=== PATIENT | male | born 1980 | race Caucasian/White ===

== ENCOUNTER → 2023-02-12 | Outpatient (CLI) | payer OTHER ==
--- NOTE | 2023-02-12 15:48 | XR ---
EXAMINATION TYPE: XR hand complete RT DATE OF EXAM: 02/12/2023 COMPARISON: NONE HISTORY: Pain TECHNIQUE: Three views are submitted. FINDINGS: The osseous structures are intact. The joint spaces are preserved and there is no acute fracture or dislocation. Sclerotic focus distal phalanx fifth digit likely represents a bone island. IMPRESSION: 1. No osseous abnormality identified. If concern for a soft tissue\tenderness\ligamentis injury cons ider MRI of the hand.
== END | disposition home or self-care (01) ==
LOC: RADXRMAIN 15:21
PROVIDERS: ATTEND Internal Medicine Geriatric Medicine
DX: M79.641 Pain in right hand (principal)

== ENCOUNTER → 2023-04-24 | Outpatient (CLI) | payer OTHER ==
--- NOTE | 2023-04-29 06:51 | MR ---
EXAM: MR hand RT wo con DATE OF EXAM: 04/24/2023 COMPARISON: Right hand radiographs 02/12/2023 HISTORY: Rt Hand Swelling with limited movement of middle finger x3 months - marker on area of intere st TECHNIQUE: Multiplanar, multisequence images of the right hand were acquired without contrast. FINDINGS: BONES/JOINTS: Normal bone marrow signal. Joints are normal in alignment with normal articular cartila ge. Large joint effusion of the third metacarpophalangeal joint. LIGAMENTS: Third metacarpophalangeal joint intracapsular ligaments demonstrate Increased intrasubstan ce signal, but appear intact. The remainder of the visualized ligamentous structures are normal. TENDONS: Flexor tendons are normal. Extensor tendons are normal. SOFT TISSUES: No bursal distention. No fluid collection. NEUROVASCULAR: Visualized neurovascular structures are normal. OTHER: Normal. IMPRESSION: 1. Third MCP joint large joint effusion and increased signal in the intracapsular ligaments. Findings may relate to inflammatory and/or infectious arthritides. 2. Intact extensor tendons.
== END | disposition home or self-care (01) ==
LOC: RADMRIMAIN 07:49
PROVIDERS: ATTEND Orthopaedic Surgery Hand Surgery
DX: S66.39 Other injury of extensor muscle, fascia and tendon of other and unspecified finger at wrist and hand level (principal); M25.441 Effusion, right hand

== ENCOUNTER 2023-10-28 08:15 | Day surgery (SDC) | payer OTHER ==
[2023-10-22 13:30] VITALS: BMI 21.7
[2023-10-28] MEDS: IV FLUID CONTINUATION 1,000 ML IV ONE (08:29)
[2023-10-28] MEDS: LACTATED RINGERS 1,000 ML BAG IV STA (08:42)
[2023-10-28 08:49] VITALS: TEMP 97
[2023-10-28] MEDS ORDERED: LIDOCAINE 2% (PF) 20 MG/ML 5 ML VIAL ONE (09:05)
[2023-10-28] MEDS ORDERED: PROPOFOL 10 MG/ML 20 ML VIAL IV ONE (09:05)
--- NOTE | 2023-10-28 09:17 | P.PCN ---
Date of Procedure: 10/28/23 Procedure(s) Performed: BRIEF HISTORY: Patient is a 43-year-old, pleasant, white male scheduled for an upper endoscopy as a part evaluation of intermittent dysphagia to solids for the last 1 year duration. Denies any heartburn.. PROCEDURE PERFORMED: Esophagogastroduodenoscopy with biopsy and dilation PREOPERATIVE DIAGNOSIS: Intermittent dysphagia to solids. IV sedation per anesthesia. PROCEDURE: After informed consent was obtained, the patient was brought into the endoscopy unit. IV sedation was administered by Anesthesia under continuous monitoring. Initially the Olympus GIF-140 video endoscope was inserted into the mouth. Esophagus intubated without any difficulty. It was gradually advanced into the stomach and duodenum and carefully examined. The bulb and the second part of the duodenum appeared normal. The scope at this time was withdrawn to the stomach, adequately insufflated with air, and upon careful examination, mucosa of the antrum, diffuse gastritis and biopsies were done from this area. Mucosa of the body, cardia and the fundus appeared normal. The scope was then withdrawn into the esophagus. Mild hiatal hernia noted. The GE junction was located at 39 cm from the incisors. Distal esophageal stricture identified and this was dilated using 12 and 13.5 mm TTS balloon for 30 seconds. Mucosal tear with some oozing was identified at the site of dilation that spontaneously resolved. The mucosa of the mid and distal esophagus revealed thickened esophageal folds with multiple longitudinal ridges and furrows all suspicious for eosinophilic esophagitis s/p multiple biopsies. Rest of the esophagus appeared normal and the patient tolerated the procedure well. IMPRESSION: 1. Distal esophageal stricture s/p balloon dilation using 12 to 13.5 mm TTS balloon as described above. 2. Thickened mid and distal esophageal folds with multiple move mucosal rings suspicious for eosinophilic esophagitis s/p biopsies. 2. Small hiatal hernia 4. Mild antral gastritis RECOMMENDATIONS: The findings of this examination were discussed with the patient as well as his family. He was advised to follow-up with the biopsy results. Remain on clear liquids today. Follow-up in the office in 2 to 3 weeks..
[2023-10-28 09:48] VITALS: RESP 20
[2023-10-28 10:15] VITALS: BP 119/74; PULSE 74
== END 2023-10-28 10:15 ==
LOC: ORWHC2ENDO 08:15
PROVIDERS: ATTEND Internal Medicine Gastroenterology
DX: K22.2 Esophageal obstruction (principal); K29.50 Unspecified chronic gastritis without bleeding; K20.90 Esophagitis, unspecified without bleeding; K44.9 Diaphragmatic hernia without obstruction or gangrene; Z88.2 Allergy status to sulfonamides; Z88.3 Allergy status to other anti-infective agents
CPT/HCPCS: 88305; 43239; 43249; J2704; J2001; C1726